=== PATIENT | male | born 1975 | race Caucasian/White ===

== ENCOUNTER 2017-03-27 13:11 | Inpatient (IN) | payer MEDICAID, OTHER ==
[~2017-03-27] VITALS: Ht 162.6 cm; Wt 94.0 kg
[2017-03-27] MEDS ORDERED: LOSA50TA37 PO (13:23)
[2017-03-27] MEDS ORDERED: METO-325 PO (13:23)
[2017-03-27] MEDS ORDERED: ATOR40TA28 PO (13:23)
[2017-03-27] MEDS ORDERED: AMLO-512 PO (13:23)
[2017-03-27] MEDS ORDERED: CLOP75 PO (13:23)
[2017-03-27] MEDS ORDERED: CLON.1 PO (13:23)
[2017-03-27] MEDS ORDERED: ACETAMINOPHEN 1000 MG/ISO-OSM 100 ML IV ONE (14:00)
[2017-03-27] MEDS ORDERED: CloNIDine HCL 0.2 MG TABLET PO ONE (14:00)
[2017-03-27 14:12] LABS: BASOPHILS % (AUTO) 0.1 % (0.0-2.0); EOSINOPHILS % (AUTO) 3.7 % (1.0-6.0); HEMOGLOBIN 17.5 g/dL (13.5-17.5); LYMPHOCYTES # (AUTO) 1.3 K/uL (1.0-4.8); LYMPHOCYTES % (AUTO) 12.9 % (22.0-44.0); MEAN CORPUSCULAR HEMOGLOBIN 24.8 pg (26.0-34.0); MEAN CORPUSCULAR HGB CONC 31.1 G/dL (31.0-37.0); MEAN CORPUSCULAR VOLUME 80 fL (80-100); MONOCYTES # (AUTO) 0.6 K/uL (0.1-1.0); MONOCYTES % (AUTO) 6.1 % (2.0-9.0); NEUTROPHILS # (AUTO) 7.8 K/uL (1.8-7.7); NEUTROPHILS % (AUTO) 77.2 % (40.0-70.0); PLATELET COUNT (AUTO) 215 K/uL (150-450); RED BLOOD CELL COUNT(AUTO) 7.08 MIL/uL (4.50-5.90); RED CELL DISTRIBUTION WIDTH 16.3 % (11.5-14.5); WHITE BLOOD COUNT (AUTO) 10.1 K/uL (4.5-11.0)
[2017-03-27 14:20] LABS: HEMATOCRIT 56.3 % (41-53)
[2017-03-27 14:23] LABS: CALCIUM, TOTAL 8.9 mg/dL (8.8-10.5); CREATININE 1.61 mg/dL (0.60-1.30); POTASSIUM 3.5 mmol/L (3.5-5.1)
[2017-03-27 14:35] LABS: BILIRUBIN,TOTAL 0.6 mg/dL (0.1-1.0); TOTAL PROTEIN, SERUM 7.2 g/dL (6.4-8.2)
[2017-03-27] MEDS ORDERED: NITROGLYCERIN 2% (1 GM=INCH) PACKET TP ONE (15:00)
[2017-03-27] MEDS ORDERED: CLOPIDOGREL BISULFATE 75 MG TABLET PO ONE (15:00)
[2017-03-27] MEDS ORDERED: LABETALOL HCL 5 MG/ML 20 ML VIAL IVP ONE (15:00)
[2017-03-27] MEDS ORDERED: ONDANSETRON HCL 4 MG/2 ML VIAL IVP PRN ×2 (15:45→22:30)
[2017-03-27] MEDS ORDERED: ACETAMINOPHEN 325 MG TABLET PO PRN ×2 (15:45→22:30)
[2017-03-27 15:58] LABS: APPEARANCE,URINE CLEAR (CLEAR); GLUCOSE, URINE (UA) NEGATIVE (NEGATIVE); KETONES,URINE NEGATIVE (NEGATIVE); LEUKOCYTE ESTERASE ,URINE NEGATIVE (NEGATIVE); OCCULT BLOOD,URINE TRACE (NEGATIVE); PH,URINE 6.5 (5.0-8.0); PROTEIN,URINE SEE CONFIRM (NEGATIVE)
[2017-03-27 16:00] LABS: ADD UA MICROSCOPIC YES
[2017-03-27 16:15] LABS: SULFOSALICYLIC ACID,URINE 4+ (Negative)
[2017-03-27 16:18] LABS: SQUAMOUS EPITHELIAL CELL,UR Rare /LPF (None Seen); WBC,URINE 0-2 /HPF (0-5)
[2017-03-27 16:19] LABS: COARSE GRANULAR CASTS,URINE 0-2 /LPF (None Seen)
[2017-03-27 19:35] LABS: ABG BASE EXCESS 6.2 mmol/L (-2.0-3.0); ABG HCO3 26.6 mmol/L (22.0-26.0); ABG OXYHEMOGLOBIN 80.6 % (94.0-100.0); ABG PH 7.262 (7.35-7.450); TEMPERATURE, FAHRENHEIT, BG 98.6 FAHREN (96.0-98.6)
[2017-03-27 19:39] LABS: ABG PCO2 76 mmHg (35-45)
[2017-03-27 19:40] LABS: ALLEN TEST, BLOOD GAS Positive
[2017-03-27 20:26] LABS: PROTHROMBIN TIME 10.7 SEC (9.4-11.6)
[2017-03-27 20:53] LABS: CREATINE KINASE MB 5.7 ng/mL (0-5)
[2017-03-27 22:28] VITALS: BP 134/75
[2017-03-27] MEDS ORDERED: HYDROCODONE/ACETAMINOPHEN 5-325 MG TABLET PO PRN (22:30)
[2017-03-27] MEDS ORDERED: ZOLPIDEM TARTRATE 5 MG TABLET PO PRN (22:30)
[2017-03-27] MEDS ORDERED: BISACODYL 10 MG RECTAL RECTAL SUPPOSITORY PR PRN (22:30)
[2017-03-27] MEDS ORDERED: ALBUTEROL SULFATE 2.5 MG/0.5 ML NEB SOLUTION NEB PRN (22:30)
[2017-03-27] MEDS ORDERED: MORPHINE SULFATE 2 MG/ML SYRINGE IVP PRN (22:30)
[2017-03-27] MEDS ORDERED: IPRATROPIUM BROMIDE 0.5 MG/2.5 ML NEB SOLUTION NEB PRN (22:30)
[2017-03-27] MEDS ORDERED: MAGNESIUM HYDROXIDE SUSPENSION 30 ML UDCUP PO PRN (22:30)
[2017-03-27] MEDS ORDERED: SODIUM CHLORIDE 0.9% 250 ML IV ONE (23:13)
[2017-03-27] MEDS: PIPERACILLIN/TAZO 3.375 GM/D5W 50 ML IV SCH (23:28)
[2017-03-27] MEDS: HEPARIN SODIUM,PORCINE 5,000 UNITS/ML VIAL SQ SCH (23:28)
[2017-03-27 23:47] VITALS: BP 148/85
[2017-03-28 00:47] LABS: ABG A-A DIFF O2 122.3 mmHg (10-20.0); ABG BASE EXCESS 7.2 mmol/L (-2.0-3.0); ABG HCO3 27.2 mmol/L (22.0-26.0); ABG OXYHEMOGLOBIN 96.9 % (94.0-100.0); ABG PH 7.214 (7.35-7.450); TEMPERATURE, FAHRENHEIT, BG 98.6 FAHREN (96.0-98.6)
[2017-03-28 00:49] LABS: ABG PCO2 89 mmHg (35-45); ALLEN TEST, BLOOD GAS Positive; IPAP, BG 16 cm H2O
[2017-03-28 04:51] VITALS: BP 144/88
[2017-03-28 04:51] LABS: ABG A-A DIFF O2 117.8 mmHg (10-20.0); ABG BASE EXCESS 8.3 mmol/L (-2.0-3.0); ABG HCO3 29.1 mmol/L (22.0-26.0); ABG OXYHEMOGLOBIN 94.2 % (94.0-100.0); ABG PCO2 70 mmHg (35-45); ABG PH 7.309 (7.35-7.450); ALLEN TEST, BLOOD GAS Positive; IPAP, BG 20 cm H2O; TEMPERATURE, FAHRENHEIT, BG 98.6 FAHREN (96.0-98.6)
[2017-03-28] MEDS: PIPERACILLIN/TAZO 3.375 GM/D5W 50 ML IV SCH ×4 (05:58→23:29)
[2017-03-28] MEDS ORDERED: DEXTROSE 50%-WATER 25 GM/50 ML SYRINGE IVP PRN (06:00)
[2017-03-28] MEDS ORDERED: IPRATROPIUM BROMIDE 0.5 MG/2.5 ML NEB SOLUTION NEB PRN (06:00)
[2017-03-28] MEDS ORDERED: ALBUTEROL SULFATE 2.5 MG/0.5 ML NEB SOLUTION NEB PRN (06:00)
[2017-03-28] MEDS: MethylPREDNISolone SOD SUCC 125 MG/2 ML VIAL IVP SCH ×4 (06:01→23:29)
[2017-03-28] MEDS: INSULIN ASPART 100 UNITS/ML SQ PRN ×4 (06:52→20:40)
[2017-03-28 07:25] VITALS: BP 151/90
[2017-03-28] MEDS: IPRATROPIUM BROMIDE 0.5 MG/2.5 ML NEB SOLUTION NEB SCH ×3 (08:04→20:13)
[2017-03-28] MEDS: ALBUTEROL SULFATE 2.5 MG/0.5 ML NEB SOLUTION NEB SCH ×3 (08:04→20:13)
[2017-03-28] MEDS: AmLODIPine BESYLATE 10 MG TABLET PO SCH (08:10)
[2017-03-28] MEDS: PANTOPRAZOLE SODIUM 40 MG/VIAL IVP SCH (08:10)
[2017-03-28] MEDS: CLOPIDOGREL BISULFATE 75 MG TABLET PO SCH (08:10)
[2017-03-28] MEDS: ATORVASTATIN CALCIUM 40 MG TABLET PO SCH (08:10)
[2017-03-28] MEDS: LOSARTAN POTASSIUM 25 MG TABLET PO SCH (08:11)
[2017-03-28] MEDS: GuaiFENesin SR 600 MG ER TABLET PO SCH ×2 (08:11→20:31)
[2017-03-28] MEDS: DOCUSATE SODIUM 100 MG CAPSULE PO SCH ×2 (08:11→20:31)
[2017-03-28] MEDS: BENZONATATE 100 MG CAPSULE PO SCH ×3 (08:11→20:33)
[2017-03-28] MEDS: HEPARIN SODIUM,PORCINE 5,000 UNITS/ML VIAL SQ SCH ×3 (08:11→23:30)
[2017-03-28] MEDS ORDERED: LOSARTAN POTASSIUM 50 MG TABLET PO SCH (09:00)
[2017-03-28] MEDS ORDERED: METOPROLOL SUCCINATE 100 MG ER TABLET PO SCH (09:00)
[2017-03-28] MEDS: LABETALOL HCL 200 MG TABLET PO SCH ×2 (09:19→20:31)
[2017-03-28 11:24] LABS: ABG A-A DIFF O2 137.9 mmHg (10-20.0); ABG BASE EXCESS 2.5 mmol/L (-2.0-3.0); ABG HCO3 24.8 mmol/L (22.0-26.0); ABG OXYHEMOGLOBIN 92.9 % (94.0-100.0); ABG PCO2 62 mmHg (35-45); ABG PH 7.287 (7.35-7.450); TEMPERATURE, FAHRENHEIT, BG 97.8 FAHREN (96.0-98.6)
[2017-03-28 11:25] LABS: ALLEN TEST, BLOOD GAS Positive; IPAP, BG 20 cm H2O
[2017-03-28 11:26] VITALS: BP 127/59
[2017-03-28 15:59] VITALS: BP 134/78
[2017-03-28 19:49] VITALS: BP 120/65
[2017-03-28 20:02] LABS: GLUCOSE COMMENT 1 Received Meds; GLUCOSE,POINT OF CARE 144 MG/DL (70-110)
[2017-03-28 20:06] LABS: GLUCOSE COMMENT 1 Received Meds; GLUCOSE,POINT OF CARE 346 MG/DL (70-110)
[2017-03-29] VITALS (7 sets, daily range): BP systolic 109–141; BP diastolic 50–81
[2017-03-29] MEDS: IPRATROPIUM BROMIDE 0.5 MG/2.5 ML NEB SOLUTION NEB SCH ×4 (01:34→19:24)
[2017-03-29] MEDS: ALBUTEROL SULFATE 2.5 MG/0.5 ML NEB SOLUTION NEB SCH ×4 (01:35→19:24)
[2017-03-29] MEDS: MethylPREDNISolone SOD SUCC 125 MG/2 ML VIAL IVP SCH ×4 (06:10→23:38)
[2017-03-29] MEDS: PIPERACILLIN/TAZO 3.375 GM/D5W 50 ML IV SCH ×4 (06:10→23:38)
[2017-03-29] MEDS: INSULIN ASPART 100 UNITS/ML SQ PRN ×4 (06:14→20:06)
[2017-03-29 07:27] LABS: BILIRUBIN,TOTAL 0.5 mg/dL (0.1-1.0); CALCIUM, TOTAL 9.6 mg/dL (8.8-10.5); CREATININE 2.09 mg/dL (0.60-1.30); MAGNESIUM 2.2 mg/dL (1.80-2.40); PHOSPHORUS 5.9 mg/dL (2.5-4.9); POTASSIUM 5.3 mmol/L (3.5-5.1); THYROID STIMULATING HORMONE 0.44 uIU/mL (0.36-3.74); TOTAL PROTEIN, SERUM 6.7 g/dL (6.4-8.2)
[2017-03-29 07:28] LABS: NEUTROPHILS # (AUTO) 15.1 K/uL (1.8-7.7)
[2017-03-29 07:38] LABS: BASOPHILS % (AUTO) 0.1 % (0.0-2.0); EOSINOPHILS % (AUTO) 0.2 % (1.0-6.0); HEMATOCRIT 53.8 % (41-53); HEMOGLOBIN 16.8 g/dL (13.5-17.5); LYMPHOCYTES # (AUTO) 0.8 K/uL (1.0-4.8); LYMPHOCYTES % (AUTO) 4.7 % (22.0-44.0); MEAN CORPUSCULAR HEMOGLOBIN 24.7 pg (26.0-34.0); MEAN CORPUSCULAR HGB CONC 31.2 G/dL (31.0-37.0); MEAN CORPUSCULAR VOLUME 79 fL (80-100); MONOCYTES # (AUTO) 0.9 K/uL (0.1-1.0); MONOCYTES % (AUTO) 5.2 % (2.0-9.0); PLATELET COUNT (AUTO) 216 K/uL (150-450); RED BLOOD CELL COUNT(AUTO) 6.79 MIL/uL (4.50-5.90); RED CELL DISTRIBUTION WIDTH 16.8 % (11.5-14.5); WHITE BLOOD COUNT (AUTO) 16.8 K/uL (4.5-11.0)
[2017-03-29 07:40] LABS: NEUTROPHILS % (AUTO) 89.8 % (40.0-70.0)
[2017-03-29] MEDS ORDERED: SODIUM POLYSTYRENE SULFONATE 15 GM/60 ML SUSPENSION BOTTLE PO ONE (10:00)
[2017-03-29] MEDS: GuaiFENesin SR 600 MG ER TABLET PO SCH ×2 (10:24→20:04)
[2017-03-29] MEDS: PANTOPRAZOLE SODIUM 40 MG/VIAL IVP SCH (10:24)
[2017-03-29] MEDS: HEPARIN SODIUM,PORCINE 5,000 UNITS/ML VIAL SQ SCH ×3 (10:24→23:38)
[2017-03-29] MEDS: LABETALOL HCL 200 MG TABLET PO SCH ×2 (10:24→20:04)
[2017-03-29] MEDS: DOCUSATE SODIUM 100 MG CAPSULE PO SCH ×2 (10:24→20:04)
[2017-03-29] MEDS: BENZONATATE 100 MG CAPSULE PO SCH ×3 (10:25→20:04)
[2017-03-29] MEDS: LOSARTAN POTASSIUM 25 MG TABLET PO SCH (10:25)
[2017-03-29] MEDS: ATORVASTATIN CALCIUM 40 MG TABLET PO SCH (10:25)
[2017-03-29] MEDS: CLOPIDOGREL BISULFATE 75 MG TABLET PO SCH (10:25)
[2017-03-29] MEDS: AmLODIPine BESYLATE 10 MG TABLET PO SCH (10:26)
[2017-03-29] MEDS ORDERED: DEXTROSE 50%-WATER 25 GM/50 ML SYRINGE IVP PRN (12:30)
[2017-03-29 14:49] LABS: ABG A-A DIFF O2 71.5 mmHg (10-20.0); ABG BASE EXCESS 3.8 mmol/L (-2.0-3.0); ABG HCO3 26.4 mmol/L (22.0-26.0); ABG OXYHEMOGLOBIN 90.6 % (94.0-100.0); ABG PCO2 55 mmHg (35-45); ABG PH 7.349 (7.35-7.450); TEMPERATURE, FAHRENHEIT, BG 98.6 FAHREN (96.0-98.6)
[2017-03-29 14:50] LABS: ALLEN TEST, BLOOD GAS Positive
[2017-03-29 19:32] LABS: GLUCOSE COMMENT 1 Received Meds; GLUCOSE,POINT OF CARE 304 MG/DL (70-110)
[2017-03-30] MEDS: IPRATROPIUM BROMIDE 0.5 MG/2.5 ML NEB SOLUTION NEB SCH ×4 (01:15→19:43)
[2017-03-30] MEDS: ALBUTEROL SULFATE 2.5 MG/0.5 ML NEB SOLUTION NEB SCH ×4 (01:15→19:43)
[2017-03-30 04:09] VITALS: BP 148/85
[2017-03-30] MEDS: MethylPREDNISolone SOD SUCC 125 MG/2 ML VIAL IVP SCH (05:40)
[2017-03-30] MEDS: PIPERACILLIN/TAZO 3.375 GM/D5W 50 ML IV SCH ×4 (05:40→23:06)
[2017-03-30] MEDS: INSULIN ASPART 100 UNITS/ML SQ PRN ×4 (05:42→21:11)
[2017-03-30 06:35] LABS: EOSINOPHILS % (AUTO) 0 % (1.0-6.0); HEMATOCRIT 52.2 % (41-53); HEMOGLOBIN 16.5 g/dL (13.5-17.5); LYMPHOCYTES # (AUTO) 0.5 K/uL (1.0-4.8); LYMPHOCYTES % (AUTO) 3.3 % (22.0-44.0); MEAN CORPUSCULAR HEMOGLOBIN 25.1 pg (26.0-34.0); MEAN CORPUSCULAR HGB CONC 31.7 G/dL (31.0-37.0); MEAN CORPUSCULAR VOLUME 79 fL (80-100); MONOCYTES # (AUTO) 0.4 K/uL (0.1-1.0); MONOCYTES % (AUTO) 2.2 % (2.0-9.0); NEUTROPHILS # (AUTO) 15.5 K/uL (1.8-7.7); PLATELET COUNT (AUTO) 226 K/uL (150-450); RED BLOOD CELL COUNT(AUTO) 6.58 MIL/uL (4.50-5.90); RED CELL DISTRIBUTION WIDTH 16.9 % (11.5-14.5); WHITE BLOOD COUNT (AUTO) 16.4 K/uL (4.5-11.0)
[2017-03-30 06:45] LABS: NEUTROPHILS % (AUTO) 94.5 % (40.0-70.0); RBC MORPHOLOGY COMMENT NORMAL RBC MORPH
[2017-03-30 06:58] LABS: ALBUMIN 2.9 g/dL (3.4-5.0); BILIRUBIN,TOTAL 0.5 mg/dL (0.1-1.0); CALCIUM, TOTAL 9.2 mg/dL (8.8-10.5); CREATININE 1.82 mg/dL (0.60-1.30); MAGNESIUM 2.2 mg/dL (1.80-2.40); POTASSIUM 4.5 mmol/L (3.5-5.1); TOTAL PROTEIN, SERUM 6.8 g/dL (6.4-8.2)
[2017-03-30 07:34] VITALS: BP 139/76
[2017-03-30] MEDS: PANTOPRAZOLE SODIUM 40 MG/VIAL IVP SCH (08:52)
[2017-03-30] MEDS: HEPARIN SODIUM,PORCINE 5,000 UNITS/ML VIAL SQ SCH ×3 (08:52→23:06)
[2017-03-30] MEDS: BENZONATATE 100 MG CAPSULE PO SCH ×3 (08:52→21:08)
[2017-03-30] MEDS: AmLODIPine BESYLATE 10 MG TABLET PO SCH (08:52)
[2017-03-30] MEDS: LOSARTAN POTASSIUM 25 MG TABLET PO SCH (08:52)
[2017-03-30] MEDS: ATORVASTATIN CALCIUM 40 MG TABLET PO SCH (08:52)
[2017-03-30] MEDS: GuaiFENesin SR 600 MG ER TABLET PO SCH ×2 (08:52→21:08)
[2017-03-30] MEDS: CLOPIDOGREL BISULFATE 75 MG TABLET PO SCH (08:52)
[2017-03-30] MEDS: DOCUSATE SODIUM 100 MG CAPSULE PO SCH ×2 (08:53→21:08)
[2017-03-30 09:13] LABS: ABG HCO3 29.7 mmol/L (22.0-26.0); ABG OXYHEMOGLOBIN 94.2 % (94.0-100.0); ABG PCO2 58 mmHg (35-45); ABG PH 7.378 (7.35-7.450); TEMPERATURE, FAHRENHEIT, BG 98.7 FAHREN (96.0-98.6)
[2017-03-30 09:17] LABS: ALLEN TEST, BLOOD GAS Positive
[2017-03-30] MEDS: LABETALOL HCL 200 MG TABLET PO SCH ×2 (09:49→21:08)
[2017-03-30 11:34] VITALS: BP 127/76
[2017-03-30] MEDS: MethylPREDNISolone SOD SUCC 40 MG/ML VIAL IVP SCH ×3 (12:15→23:05)
[2017-03-30 14:37] LABS: GLUCOSE COMMENT 1 Received Meds; GLUCOSE,POINT OF CARE 223 MG/DL (70-110)
[2017-03-30 14:37] LABS: GLUCOSE COMMENT 1 Received Meds; GLUCOSE,POINT OF CARE 316 MG/DL (70-110)
[2017-03-30 14:42] LABS: GLUCOSE COMMENT 1 Received Meds; GLUCOSE,POINT OF CARE 199 MG/DL (70-110)
[2017-03-30 15:27] VITALS: BP 125/80
[2017-03-30 19:16] VITALS: BP 156/93
[2017-03-30] MEDS: OXYGEN THERAPY IH SCH (21:07)
[2017-03-31 00:16] VITALS: BP 144/87
[2017-03-31] MEDS: IPRATROPIUM BROMIDE 0.5 MG/2.5 ML NEB SOLUTION NEB SCH ×3 (01:43→13:37)
[2017-03-31] MEDS: ALBUTEROL SULFATE 2.5 MG/0.5 ML NEB SOLUTION NEB SCH ×3 (01:44→13:37)
[2017-03-31] MEDS: PIPERACILLIN/TAZO 3.375 GM/D5W 50 ML IV SCH ×3 (04:24→16:47)
[2017-03-31 04:27] LABS: GLUCOSE COMMENT 1 Repeated; GLUCOSE,POINT OF CARE 403 MG/DL (70-110)
[2017-03-31 04:27] LABS: GLUCOSE,POINT OF CARE 306 MG/DL (70-110)
[2017-03-31 04:27] LABS: GLUCOSE COMMENT 1 Received Meds; GLUCOSE,POINT OF CARE 285 MG/DL (70-110)
[2017-03-31 04:39] VITALS: BP 142/98
[2017-03-31] MEDS: MethylPREDNISolone SOD SUCC 40 MG/ML VIAL IVP SCH ×3 (05:34→17:35)
[2017-03-31] MEDS: INSULIN ASPART 100 UNITS/ML SQ PRN ×3 (05:35→17:46)
[2017-03-31 06:40] LABS: EOSINOPHILS % (AUTO) 0 % (1.0-6.0); HEMATOCRIT 52.5 % (41-53); HEMOGLOBIN 16.8 g/dL (13.5-17.5); LYMPHOCYTES # (AUTO) 0.5 K/uL (1.0-4.8); LYMPHOCYTES % (AUTO) 3.7 % (22.0-44.0); MEAN CORPUSCULAR HEMOGLOBIN 25.2 pg (26.0-34.0); MEAN CORPUSCULAR HGB CONC 31.9 G/dL (31.0-37.0); MEAN CORPUSCULAR VOLUME 79 fL (80-100); MONOCYTES # (AUTO) 0.6 K/uL (0.1-1.0); MONOCYTES % (AUTO) 4.7 % (2.0-9.0); NEUTROPHILS # (AUTO) 12.4 K/uL (1.8-7.7); PLATELET COUNT (AUTO) 234 K/uL (150-450); RED BLOOD CELL COUNT(AUTO) 6.64 MIL/uL (4.50-5.90); RED CELL DISTRIBUTION WIDTH 17.3 % (11.5-14.5); WHITE BLOOD COUNT (AUTO) 13.5 K/uL (4.5-11.0)
[2017-03-31 06:52] LABS: ALBUMIN 2.9 g/dL (3.4-5.0); BILIRUBIN,TOTAL 0.6 mg/dL (0.1-1.0); CALCIUM, TOTAL 8.9 mg/dL (8.8-10.5); CREATININE 1.67 mg/dL (0.60-1.30); MAGNESIUM 2.3 mg/dL (1.80-2.40); POTASSIUM 4.3 mmol/L (3.5-5.1); TOTAL PROTEIN, SERUM 6.7 g/dL (6.4-8.2)
[2017-03-31 07:10] LABS: NEUTROPHILS % (AUTO) 91.6 % (40.0-70.0)
[2017-03-31 07:27] LABS: GLUCOSE COMMENT 1 Received Meds; GLUCOSE,POINT OF CARE 163 MG/DL (70-110)
[2017-03-31 07:57] VITALS: BP 144/95
[2017-03-31] MEDS: OXYGEN THERAPY IH SCH (08:00)
[2017-03-31] MEDS: HEPARIN SODIUM,PORCINE 5,000 UNITS/ML VIAL SQ SCH ×2 (08:01→15:32)
[2017-03-31] MEDS: PANTOPRAZOLE SODIUM 40 MG/VIAL IVP SCH (08:01)
[2017-03-31] MEDS: LOSARTAN POTASSIUM 25 MG TABLET PO SCH (08:02)
[2017-03-31] MEDS: ATORVASTATIN CALCIUM 40 MG TABLET PO SCH (08:02)
[2017-03-31] MEDS: DOCUSATE SODIUM 100 MG CAPSULE PO SCH (08:02)
[2017-03-31] MEDS: GuaiFENesin SR 600 MG ER TABLET PO SCH (08:02)
[2017-03-31] MEDS: AmLODIPine BESYLATE 10 MG TABLET PO SCH (08:02)
[2017-03-31] MEDS: LABETALOL HCL 200 MG TABLET PO SCH (08:02)
[2017-03-31] MEDS: CLOPIDOGREL BISULFATE 75 MG TABLET PO SCH (08:02)
[2017-03-31] MEDS: BENZONATATE 100 MG CAPSULE PO SCH ×2 (08:03→15:32)
[2017-03-31 10:31] LABS: ABG A-A DIFF O2 16.5 mmHg (10-20.0); ABG BASE EXCESS 6.3 mmol/L (-2.0-3.0); ABG HCO3 28.4 mmol/L (22.0-26.0); ABG OXYHEMOGLOBIN 91.9 % (94.0-100.0); ABG PCO2 53 mmHg (35-45); ABG PH 7.389 (7.35-7.450)
[2017-03-31 10:32] LABS: ALLEN TEST, BLOOD GAS Positive
[2017-03-31 10:33] LABS: RBC MORPHOLOGY COMMENT ABNORMAL RBC MORPH
[2017-03-31 11:27] VITALS: BP 144/80
[2017-03-31 15:09] VITALS: BP 142/84
[2017-03-31] MEDS ORDERED: IPRAHFA IH (15:13)
[2017-03-31] MEDS ORDERED: ALBU8HFA IH (15:15)
[2017-03-31] MEDS ORDERED: BENZ-26 PO (15:15)
[2017-03-31] MEDS ORDERED: GUAI600T PO (15:16)
[2017-03-31] MEDS ORDERED: LABE200T PO (15:17)
[2017-03-31] MEDS ORDERED: LOSA50TA37 PO (15:17)
[2017-03-31] MEDS ORDERED: OMEP20 PO (15:18)
[2017-03-31] MEDS ORDERED: PRED20 PO ×2 (15:20→15:21)
[2017-03-31] MEDS ORDERED: CIP250 PO (15:20)
[2017-03-31] MEDS ORDERED: PRED10 PO (15:21)
[2017-03-31] MEDS ORDERED: PRED5 PO (15:22)
[2017-03-31] MEDS ORDERED: LABETALOL HCL 200 MG TABLET PO SCH (16:00)
[2017-03-31 20:02] LABS: GLUCOSE,POINT OF CARE 277 MG/DL (70-110)
[2017-03-31 20:07] LABS: GLUCOSE,POINT OF CARE 299 MG/DL (70-110)
[2017-04-01] MEDS ORDERED: LOSARTAN POTASSIUM 50 MG TABLET PO SCH (09:00)
[2017-04-03 17:58] LABS: GLUCOSE COMMENT 1 Received Meds; GLUCOSE,POINT OF CARE 392 MG/DL (70-110)
[2017-04-03 17:58] LABS: GLUCOSE COMMENT 1 Received Meds; GLUCOSE,POINT OF CARE 297 MG/DL (70-110)
[2017-04-03 17:58] LABS: GLUCOSE,POINT OF CARE 250 MG/DL (70-110)
[2017-04-09 14:43] LABS: GLUCOSE COMMENT 1 Received Meds; GLUCOSE,POINT OF CARE 439 MG/DL (70-110)
== END 2017-03-31 18:45 | disposition home or self-care (01) | DRG 190 ==
LOC: EMS 13:13 → 5N 19:59
PROVIDERS: ADMIT Hospitalist; ATTEND Hospitalist
PROC: 5A09457 Assistance with Respiratory Ventilation, 24-96 Consecutive Hours, Continuous Positive Airway Pressure (ICD-10-PCS; principal; 2017-03-27)
DX: I21.4 Non-ST elevation (NSTEMI) myocardial infarction (principal); G93.40 Encephalopathy, unspecified; I50.31 Acute diastolic (congestive) heart failure; J96.02 Acute respiratory failure with hypercapnia; J96.01 Acute respiratory failure with hypoxia; E66.01 Morbid (severe) obesity due to excess calories; I13.0 Hypertensive heart and chronic kidney disease with heart failure and stage 1 through stage 4 chronic kidney disease, or unspecified chronic kidney disease; I16.1 Hypertensive emergency; E78.5 Hyperlipidemia, unspecified; G47.33 Obstructive sleep apnea (adult) (pediatric); E78.00 Pure hypercholesterolemia, unspecified; N18.9 Chronic kidney disease, unspecified; I16.0 Hypertensive urgency; N17.9 Acute kidney failure, unspecified; I69.354 Hemiplegia and hemiparesis following cerebral infarction affecting left non-dominant side; Z68.37 Body mass index [BMI] 37.0-37.9, adult; Z88.8 Allergy status to other drugs, medicaments and biological substances; Z79.899 Other long term (current) drug therapy; Z79.02 Long term (current) use of antithrombotics/antiplatelets; Z91.14 Patient's other noncompliance with medication regimen; Z87.891 Personal history of nicotine dependence; Z82.49 Family history of ischemic heart disease and other diseases of the circulatory system
CPT/HCPCS: 71250; 74176; 82805; 82962; 83036; 83735; 84100; 84443; 93005; 93306; 94640; 94660; 96365; 99285; C9113; J0131; J1644; J2543; J2920; J2930; J3490; J7050

== ENCOUNTER 2017-08-08 09:13 | Inpatient (IN) | payer OTHER ==
[~2017-08-08] VITALS: Ht 160 cm; Wt 100.1 kg
[~2017-08-08 09:13] MED LIST: ALBU8HFA IH; AMLO-512 PO; ATOR40TA28 PO; BENZ-51 PO; CIP250 PO; CLOP75 PO; GUAI600T30 PO; IPRAHFA IH; LABE200T PO; LOSA50TA37 PO; OMEP20 PO; PRED10 PO; PRED20 PO; PRED5 PO
[2017-08-08 09:37] LABS: GLUCOSE,POINT OF CARE 237 MG/DL (70-110)
[2017-08-08 10:21] LABS: EOSINOPHILS % (AUTO) 1.8 % (1.0-6.0); HEMATOCRIT 54.3 % (41-53); HEMOGLOBIN 17.5 g/dL (13.5-17.5); LYMPHOCYTES # (AUTO) 1.2 K/uL (1.0-4.8); LYMPHOCYTES % (AUTO) 9.6 % (22.0-44.0); MEAN CORPUSCULAR HEMOGLOBIN 25.5 pg (26.0-34.0); MEAN CORPUSCULAR HGB CONC 32.2 G/dL (31.0-37.0); MEAN CORPUSCULAR VOLUME 79 fL (80-100); MONOCYTES # (AUTO) 0.7 K/uL (0.1-1.0); MONOCYTES % (AUTO) 5.5 % (2.0-9.0); NEUTROPHILS # (AUTO) 10.8 K/uL (1.8-7.7); NEUTROPHILS % (AUTO) 83.1 % (40.0-70.0); PLATELET COUNT (AUTO) 197 K/uL (150-450); RED BLOOD CELL COUNT(AUTO) 6.86 MIL/uL (4.50-5.90); RED CELL DISTRIBUTION WIDTH 15.9 % (11.5-14.5)
[2017-08-08 10:29] LABS: CALCIUM, TOTAL 8.9 mg/dL (8.8-10.5); CREATININE 1.53 mg/dL (0.60-1.30); POTASSIUM 4.1 mmol/L (3.5-5.1)
[2017-08-08] MEDS ORDERED: SODIUM CHLORIDE 0.9% 1,000 ML IV ONE ×2 (10:30→12:30)
[2017-08-08 10:35] LABS: ALBUMIN 3.4 g/dL (3.4-5.0); BILIRUBIN,TOTAL 0.6 mg/dL (0.1-1.0); TOTAL PROTEIN, SERUM 7.7 g/dL (6.4-8.2)
[2017-08-08] MEDS ORDERED: NALOXONE HCL 1 MG/ML 2 ML SYG IVP ONE (11:00)
[2017-08-08] MEDS ORDERED: NITROGLYCERIN 2% (1 GM=INCH) PACKET TP ONE (11:00)
[2017-08-08] MEDS ORDERED: ASPIRIN 81 MG CHEWABLE TABLET PO ONE (11:15)
[2017-08-08 11:20] LABS: PROTHROMBIN TIME 10.7 SEC (9.4-11.6)
[2017-08-08] MEDS ORDERED: ONDANSETRON HCL 4 MG/2 ML VIAL IVP PRN ×3 (11:45→22:15)
[2017-08-08] MEDS ORDERED: ACETAMINOPHEN 325 MG TABLET PO PRN ×4 (11:45→22:15)
[2017-08-08] MEDS ORDERED: 0.9% SODIUM CHLORIDE 10 ML SYRINGE IVP PRN ×2 (11:45→13:45)
[2017-08-08] MEDS ORDERED: LABETALOL HCL 5 MG/ML 20 ML VIAL IVP ONE ×2 (12:00→12:30)
[2017-08-08 13:18] LABS: ALLEN TEST, BLOOD GAS Positive; TEMPERATURE, FAHRENHEIT, BG 98.7 FAHREN (96.0-98.6)
[2017-08-08 13:19] LABS: ABG BASE EXCESS 3.6 mmol/L (-2.0-3.0); ABG HCO3 25.3 mmol/L (22.0-26.0); ABG PCO2 69 mmHg (35-45)
[2017-08-08 13:20] LABS: ABG A-A DIFF O2 49.5 mmHg (10-20.0); ABG OXYHEMOGLOBIN 89.9 % (94.0-100.0)
[2017-08-08] MEDS ORDERED: FUROSEMIDE 40 MG/4 ML VIAL IVP ONE (13:30)
[2017-08-08] MEDS ORDERED: METOPROLOL SUCCINATE 50 MG ER TABLET PO ONE (14:00)
[2017-08-08] MEDS ORDERED: AmLODIPine BESYLATE 5 MG TABLET PO ONE (14:00)
[2017-08-08 14:49] VITALS: BP 151/113
[2017-08-08] MEDS ORDERED: PNEUMOCOCCAL VACCINE POLYVALENT 0.5 ML VIAL [PPSV23] IM ONE (15:15)
[2017-08-08] MEDS ORDERED: INFLUENZA VIRUS VACCINE QVS 2017-18 (3YR+)/PF 60 MCG/0.5 ML SYRINGE IM ONE (15:15)
[2017-08-08 16:00] VITALS: BP 143/78
[2017-08-08 17:01] LABS: ABG PH 7.274 (7.35-7.450); ALLEN TEST, BLOOD GAS Positive; TEMPERATURE, FAHRENHEIT, BG 98.6 FAHREN (96.0-98.6)
[2017-08-08 17:02] LABS: ABG A-A DIFF O2 57.7 mmHg (10-20.0); ABG BASE EXCESS 8.7 mmol/L (-2.0-3.0); ABG HCO3 28.9 mmol/L (22.0-26.0); ABG OXYHEMOGLOBIN 96.3 % (94.0-100.0); ABG PCO2 79 mmHg (35-45)
[2017-08-08 17:03] LABS: IPAP, BG 16 cm H2O
[2017-08-08 19:27] VITALS: BP 141/89
[2017-08-08] MEDS ORDERED: ZOLPIDEM TARTRATE 5 MG TABLET PO PRN (22:15)
[2017-08-08] MEDS ORDERED: BISACODYL 10 MG RECTAL RECTAL SUPPOSITORY PR PRN (22:15)
[2017-08-08] MEDS ORDERED: HYDROCODONE/ACETAMINOPHEN 5-325 MG TABLET PO PRN (22:15)
[2017-08-08] MEDS ORDERED: MORPHINE SULFATE 2 MG/ML SYRINGE IVP PRN (22:15)
[2017-08-08] MEDS ORDERED: MAGNESIUM HYDROXIDE SUSPENSION 30 ML UDCUP PO PRN (22:15)
[2017-08-08] MEDS ORDERED: IPRATROPIUM BROMIDE 0.5 MG/2.5 ML NEB SOLUTION NEB PRN (22:15)
[2017-08-08] MEDS ORDERED: ALBUTEROL SULFATE 2.5 MG/0.5 ML NEB SOLUTION NEB PRN (22:15)
[2017-08-08] MEDS ORDERED: DEXTROSE 50%-WATER 25 GM/50 ML SYRINGE IVP PRN (22:15)
[2017-08-09] VITALS (7 sets, daily range): BP systolic 105–159; BP diastolic 58–97
[2017-08-09] MEDS: MethylPREDNISolone SOD SUCC 125 MG/2 ML VIAL IVP SCH ×4 (06:04→16:58)
[2017-08-09] MEDS: INSULIN ASPART 100 UNITS/ML SQ PRN ×4 (06:13→20:59)
[2017-08-09 06:20] LABS: BASOPHILS # (AUTO) 0.02 K/uL (0.00-0.20); BASOPHILS % (AUTO) 0.2 % (0.0-2.0); EOSINOPHILS # (AUTO) 0.02 K/uL (0.00-0.70); EOSINOPHILS % (AUTO) 0.23 % (1.0-6.0); HEMOGLOBIN 17.5 g/dL (13.5-17.5); LYMPHOCYTES # (AUTO) 0.8 K/uL (1.0-4.8); LYMPHOCYTES % (AUTO) 7.8 % (22.0-44.0); MEAN CORPUSCULAR HEMOGLOBIN 25.8 pg (26.0-34.0); MEAN CORPUSCULAR HGB CONC 31.5 G/dL (31.0-37.0); MEAN CORPUSCULAR VOLUME 82 fL (80-100); MONOCYTES # (AUTO) 0.1 K/uL (0.1-1.0); MONOCYTES % (AUTO) 0.5 % (2.0-9.0); NEUTROPHILS # (AUTO) 8.8 K/uL (1.8-7.7); PLATELET COUNT (AUTO) 193 K/uL (150-450); RED CELL DISTRIBUTION WIDTH 15.7 % (11.5-14.5); WHITE BLOOD COUNT (AUTO) 9.6 K/uL (4.5-11.0)
[2017-08-09 06:40] LABS: CALCIUM, TOTAL 9.1 mg/dL (8.8-10.5); CREATININE 1.71 mg/dL (0.60-1.30); MAGNESIUM 2.2 mg/dL (1.80-2.40); PHOSPHORUS 3.9 mg/dL (2.5-4.9); THYROID STIMULATING HORMONE 0.52 uIU/mL (0.36-3.74)
[2017-08-09 06:57] LABS: HEMATOCRIT 55.8 % (41-53); NEUTROPHILS % (AUTO) 91.3 % (40.0-70.0)
[2017-08-09] MEDS: IPRATROPIUM BROMIDE 0.5 MG/2.5 ML NEB SOLUTION NEB SCH ×3 (08:00→20:30)
[2017-08-09] MEDS: ALBUTEROL SULFATE 2.5 MG/0.5 ML NEB SOLUTION NEB SCH ×3 (08:00→20:30)
[2017-08-09] MEDS: DOCUSATE SODIUM 100 MG CAPSULE PO SCH ×2 (08:39→20:50)
[2017-08-09] MEDS: LOSARTAN POTASSIUM 50 MG TABLET PO SCH (08:39)
[2017-08-09] MEDS: CLOPIDOGREL BISULFATE 75 MG TABLET PO SCH (08:39)
[2017-08-09] MEDS: HEPARIN SODIUM,PORCINE 5,000 UNITS/ML VIAL SQ SCH ×3 (08:40→16:58)
[2017-08-09] MEDS: ATORVASTATIN CALCIUM 40 MG TABLET PO SCH (08:40)
[2017-08-09] MEDS ORDERED: OMEPRAZOLE 20 MG CAPSULE PO SCH (09:00)
[2017-08-09] MEDS ORDERED: PANTOPRAZOLE SODIUM 40 MG/VIAL IVP SCH (09:00)
[2017-08-09] MEDS: LABETALOL HCL 200 MG TABLET PO SCH ×3 (09:52→20:50)
[2017-08-09] MEDS: AmLODIPine BESYLATE 10 MG TABLET PO SCH (09:52)
[2017-08-09] MEDS ORDERED: GLYB2.5 PO (10:20)
[2017-08-09 15:03] LABS: GLUCOSE COMMENT 1 Received Meds; GLUCOSE,POINT OF CARE 245 MG/DL (70-110)
[2017-08-09 15:03] LABS: GLUCOSE COMMENT 1 Received Meds; GLUCOSE,POINT OF CARE 337 MG/DL (70-110)
[2017-08-10 00:31] VITALS: BP 108/79
[2017-08-10] MEDS: HEPARIN SODIUM,PORCINE 5,000 UNITS/ML VIAL SQ SCH ×2 (00:33→09:09)
[2017-08-10] MEDS: MethylPREDNISolone SOD SUCC 125 MG/2 ML VIAL IVP SCH ×2 (00:34→06:17)
[2017-08-10 05:38] VITALS: BP 131/80
[2017-08-10] MEDS: INSULIN ASPART 100 UNITS/ML SQ PRN (06:18)
[2017-08-10 07:02] LABS: HEMOGLOBIN A1C 7.5 % (4.5-6.2)
[2017-08-10 07:18] LABS: ALBUMIN 3.2 g/dL (3.4-5.0); BILIRUBIN,TOTAL 0.3 mg/dL (0.1-1.0); CALCIUM, TOTAL 9.1 mg/dL (8.8-10.5); CREATININE 1.71 mg/dL (0.60-1.30); POTASSIUM 4.7 mmol/L (3.5-5.1); TOTAL PROTEIN, SERUM 7.2 g/dL (6.4-8.2)
[2017-08-10 07:23] VITALS: BP 141/82
[2017-08-10] MEDS: ALBUTEROL SULFATE 2.5 MG/0.5 ML NEB SOLUTION NEB SCH (07:29)
[2017-08-10] MEDS ORDERED: 0.9% SODIUM CHLORIDE 5 ML NEB SOLUTION NEB ONE (07:32)
[2017-08-10] MEDS: IPRATROPIUM BROMIDE 0.5 MG/2.5 ML NEB SOLUTION NEB SCH (07:33)
[2017-08-10] MEDS ORDERED: PANTOPRAZOLE SODIUM 40 MG DR TABLET PO SCH (09:00)
[2017-08-10] MEDS: DOCUSATE SODIUM 100 MG CAPSULE PO SCH (09:09)
[2017-08-10] MEDS: LOSARTAN POTASSIUM 50 MG TABLET PO SCH (09:10)
[2017-08-10] MEDS: ATORVASTATIN CALCIUM 40 MG TABLET PO SCH (09:10)
[2017-08-10] MEDS: AmLODIPine BESYLATE 10 MG TABLET PO SCH (09:10)
[2017-08-10] MEDS: LABETALOL HCL 200 MG TABLET PO SCH (09:10)
[2017-08-10] MEDS: CLOPIDOGREL BISULFATE 75 MG TABLET PO SCH (09:10)
[2017-08-10 10:20] LABS: ABG PCO2 43 mmHg (35-45); ALLEN TEST, BLOOD GAS POSITIVE; TEMPERATURE, FAHRENHEIT, BG 98.6 FAHREN (96.0-98.6)
[2017-08-10 10:21] LABS: ABG BASE EXCESS 0.9 mmol/L (-2.0-3.0); ABG OXYHEMOGLOBIN 94.7 % (94.0-100.0)
[2017-08-10 10:22] LABS: ABG A-A DIFF O2 26.4 mmHg (10-20.0)
[2017-08-10] MEDS ORDERED: PRED20 PO ×3 (10:47→10:49)
[2017-08-10] MEDS ORDERED: PRED5 PO ×6 (10:50→10:57)
[2017-08-10] MEDS ORDERED: PRED10 PO (10:50)
[2017-08-10] MEDS ORDERED: MethylPREDNISolone SOD SUCC 40 MG/ML VIAL IVP SCH (12:00)
[2017-08-11 04:07] LABS: GLUCOSE,POINT OF CARE 289 MG/DL (70-110)
[2017-08-11 04:07] LABS: GLUCOSE COMMENT 1 Received Meds; GLUCOSE,POINT OF CARE 280 MG/DL (70-110)
[2017-08-11 04:18] LABS: GLUCOSE COMMENT 1 Received Meds; GLUCOSE,POINT OF CARE 257 MG/DL (70-110)
[2017-11-08] MEDS ORDERED: LEVO250 PO (16:33)
[2017-11-08] MEDS ORDERED: ATOR20TA86 PO (16:34)
[2017-11-08] MEDS ORDERED: CARV25 PO (16:34)
[2017-11-08] MEDS ORDERED: ISOS1TAB2 PO (16:35)
[2017-11-08] MEDS ORDERED: GLYB2.5 PO (16:35)
[2017-11-08] MEDS ORDERED: OMEP20 PO (16:36)
[2017-11-08] MEDS ORDERED: PRED5 PO ×2 (17:39→17:40)
== END 2017-08-10 11:45 | disposition home or self-care (01) | DRG 140 ==
LOC: EMS 09:20 → 5S 13:45
PROVIDERS: ADMIT Hospitalist; ATTEND Hospitalist
PROC: 5A09457 Assistance with Respiratory Ventilation, 24-96 Consecutive Hours, Continuous Positive Airway Pressure (ICD-10-PCS; principal; 2017-08-08)
DX: J44.1 Chronic obstructive pulmonary disease with (acute) exacerbation (principal); J96.02 Acute respiratory failure with hypercapnia; I50.41 Acute combined systolic (congestive) and diastolic (congestive) heart failure; N17.9 Acute kidney failure, unspecified; N18.3 Chronic kidney disease, stage 3 (moderate); E11.22 Type 2 diabetes mellitus with diabetic chronic kidney disease; I13.0 Hypertensive heart and chronic kidney disease with heart failure and stage 1 through stage 4 chronic kidney disease, or unspecified chronic kidney disease; G47.419 Narcolepsy without cataplexy; E78.5 Hyperlipidemia, unspecified; E66.2 Morbid (severe) obesity with alveolar hypoventilation; I16.1 Hypertensive emergency; I69.354 Hemiplegia and hemiparesis following cerebral infarction affecting left non-dominant side; Z82.49 Family history of ischemic heart disease and other diseases of the circulatory system; Z87.891 Personal history of nicotine dependence; Z88.6 Allergy status to analgesic agent; Z68.39 Body mass index [BMI] 39.0-39.9, adult
CPT/HCPCS: 70450; 71020; 82805; 82962; 83036; 83735; 84100; 84443; 90471; 93005; 93306; 93880; 94640; 94660; 96361; 96374; 96375; 99285; J1644; J1940; J2310; J2930; J3490; J7030